=== PATIENT | female | born 1975 | race Two or more races ===

== ENCOUNTER 2017-10-14 17:56 | Emergency (ER) | payer OTHER ==
[~2017-10-14] VITALS: Ht 124.5 cm; Wt 124.7 kg
[2017-10-14 19:44] LABS: Acetaminophen < 2.0 ug/mL (10-30); Salicylate < 1.7 mg/dL (2.8-20.0)
[2017-10-14 19:45] LABS: Basophils # (auto) 0.1 uL; Eosinophils # (auto) 0.5 uL; Eosinophils % (auto) 4.9 % (0.0-7.0); Hematocrit 37.9 % (36.0-46.0); Hemoglobin 12.4 g/dL (12.2-16.2); Lymphocytes # (auto) 1.4 uL; Lymphocytes % (auto) 15.7 % (10.0-50.0); Mean Corpuscular Hemoglobin 30.4 pg (28.0-32.0); Mean Corpuscular Hgb Conc. 32.7 g/dL (32.0-36.0); Monocytes # (auto) 0.5 uL; Monocytes % (auto) 5.3 % (0.0-12.0); Neutrophils # (auto) 6.7 uL; Neutrophils % (auto) 73.1 % (37.0-80.0); Nucleated Red Blood Cells % 0.1 %; Platelet Count (auto) 535 10^3/uL (140-450); Red Blood Cells 4.07 10^6/uL (4.0-5.20); Red Cell Distribution Width 16.3 % (11.8-14.3); White Blood Cell 9.2 10^3/uL (4.4-10.8)
[2017-10-14 19:47] LABS: Albumin 3.4 g/dL (3.4-5.0); BUN/Creatinine Ratio 17.4; Bilirubin, Total 0.3 mg/dL (0.2-1.0); Calcium 8.6 mg/dL (8.5-10.1); Potassium 3.3 mmol/L (3.5-5.1); Total Protein 8.1 g/dL (6.4-8.2)
[2017-10-14] MEDS ORDERED: TRAM50TA2 PO (20:02)
[2017-10-14] MEDS ORDERED: OMEP20CA74 PO (20:02)
[2017-10-14] MEDS ORDERED: BUPR100T14 PO (20:02)
[2017-10-14] MEDS ORDERED: OXYC325T14 PO (20:02)
[2017-10-14] MEDS ORDERED: VENL75TA PO (20:02)
[2017-10-14] MEDS ORDERED: ZONI50CA2 PO (20:02)
[2017-10-14] MEDS ORDERED: AMIT10TA6 PO (20:02)
[2017-10-14] MEDS ORDERED: HYDR50TA69 PO (20:02)
[2017-10-14] MEDS ORDERED: HCTZ25T PO (20:02)
[2017-10-14] MEDS ORDERED: LORA1TAB12 PO (20:02)
[2017-10-14] MEDS ORDERED: ATOR20TA50 PO (20:02)
[2017-10-14] MEDS ORDERED: BACL10TA PO (20:02)
[2017-10-14] MEDS ORDERED: HYDR200T36 PO (20:02)
[2017-10-14] MEDS ORDERED: DIP005TP TOP (20:02)
[2017-10-14 22:01] LABS: Urine Bacteria MOD /hpf (None Seen); Urine Blood Negative /uL (Negative); Urine Mucus FEW (None Seen); Urine Specific Gravity 1.016 (1.001-1.035); Urine WBC <1 /hpf (0 - 5)
[2017-10-14 22:12] LABS: Alcohol, Urine < 3.0 mg/dL (0-5); Amphetamine Screen, Urine NEGATIVE (NEGATIVE); Barbiturate Scree,Urine NEGATIVE (NEGATIVE); Cannabinoid Screen, Urine NEGATIVE (NEGATIVE); Cocaine Screen, Urine NEGATIVE (NEGATIVE); Opiate Scree,Urine POSITIVE (NEGATIVE); Phencyclidine Screen, Urine NEGATIVE (NEGATIVE)
[2017-10-14 22:19] LABS: Benzodiazephine Screen, Urine NEGATIVE (NEGATIVE)
[2017-10-14 22:22] LABS: Urine Pregnacy Test Negative (Negative)
[2017-10-15] MEDS ORDERED: traMADol HCL 50 MG TAB PO ONE
[2017-10-15] MEDS ORDERED: POTASSIUM CHL 20 Meq TABLET PO ONE (05:30)
[2017-10-15 09:39] VITALS: BP 125/70
== END 2017-10-15 09:51 ==
LOC: ER 18:02
DX: F32.9 Major depressive disorder, single episode, unspecified (principal); R45.851 Suicidal ideations; N90.810 Female genital mutilation status, unspecified
CPT/HCPCS: 36415; 80053; 80307; 80329; 81001; 81025; 83735; 84484; 85025